=== PATIENT | male | born 1945 | race Caucasian/White ===

== ENCOUNTER 2022-05-30 17:03 | Emergency (ER) | payer MEDICARE ==
[~2022-05-30] VITALS: Ht 187.9 cm; Wt 92.5 kg
[~2022-05-30 17:03] MED LIST: NAPROSYN500 MG PO; NORCO 325 MG-51 TAB PO; PARAFON FORTE500 MG PO
== END 2022-05-30 18:46 | disposition home or self-care (01) ==
LOC: ED 17:03
DX: S61.211A Laceration without foreign body of left index finger without damage to nail, initial encounter (principal); W45.8XXA Other foreign body or object entering through skin, initial encounter; Y93.89 Activity, other specified; Y92.89 Other specified places as the place of occurrence of the external cause; Y99.8 Other external cause status

== ENCOUNTER 2023-04-18 13:57 | Emergency (ER) | payer MEDICARE ==
[~2023-04-18] VITALS: Ht 187.9 cm; Wt 93.0 kg
== END 2023-04-18 17:03 | disposition left against medical advice (07) ==
LOC: ED 13:57
DX: Z48.00 Encounter for change or removal of nonsurgical wound dressing (principal); Z53.21 Procedure and treatment not carried out due to patient leaving prior to being seen by health care provider

== ENCOUNTER 2024-09-09 18:47 | Emergency (ER) | payer MEDICARE ==
[~2024-09-09] VITALS: Ht 187.9 cm; Wt 95.3 kg
== END 2024-09-09 21:33 | disposition home or self-care (01) ==
LOC: ED 18:47
DX: S01.01XA Laceration without foreign body of scalp, initial encounter (principal); Z53.29 Procedure and treatment not carried out because of patient's decision for other reasons; W00.0XXA Fall on same level due to ice and snow, initial encounter; Y93.89 Activity, other specified; Y92.89 Other specified places as the place of occurrence of the external cause; Y99.8 Other external cause status